=== PATIENT | female | born 1975 | race Caucasian/White ===

== ENCOUNTER 2020-04-17 15:42 | Emergency (ER) | payer OTHER ==
[~2020-04-17] VITALS: Wt 117.9 kg
[~2020-04-17 15:42] MED LIST: ALBUTEROL0.09 MG/A2 IH; AMOXIL500 MG PO; ANAPROX DS550 MG PO; CLARITIN10 MG PO; CORTISPORIN 1%-10 M1 OT; DIFLUCAN150 MG PO; EES400 MG PO; IMITREX100 MG PO; MOTRIN800 MG PO; PERCOCET 325 MG1 TA7 PO; PREDNISONE10 MG PO; PYRIDIUM200 MG PO; VICODIN 500 MG-1 TAB PO; ZITHROMAX Z PA250 MG PO; Zofran4 MG PO
[2020-04-17 15:53] VITALS: BP 155/80
[2020-04-17] MEDS ORDERED: PERCOCET 5-3251 EACH PO (17:23)
== END 2020-04-17 17:38 | disposition home or self-care (01) ==
LOC: ED 15:42
DX: S93.401A Sprain of unspecified ligament of right ankle, initial encounter (principal); S93.602A Unspecified sprain of left foot, initial encounter; Z88.2 Allergy status to sulfonamides; Z88.8 Allergy status to other drugs, medicaments and biological substances; Z88.1 Allergy status to other antibiotic agents; Z88.6 Allergy status to analgesic agent; Z79.899 Other long term (current) drug therapy; X50.1XXA Overexertion from prolonged static or awkward postures, initial encounter; Y93.89 Activity, other specified; Y92.89 Other specified places as the place of occurrence of the external cause; Y99.8 Other external cause status

== ENCOUNTER 2021-03-09 15:25 | Emergency (ER) | payer OTHER ==
[~2021-03-09] VITALS: Ht 172.7 cm; Wt 113.4 kg
[~2021-03-09 15:25] MED LIST changes: +PERCOCET 5-3251 EACH PO
[2021-03-09 15:37] VITALS: BP 158/110
[2021-03-09 20:47] LABS: BASO # 0.1 10*3/uL (0.0-0.1); BASO % 0.7 % (0.0-1.0); EOS # 0.2 10*3/uL (0.0-0.4); EOS % 1.6 % (1.0-4.0); HEMATOCRIT 45.9 % (37.0-47.0); LYMPH # 2.9 10*3/uL (1.3-4.4); LYMPH % 22.2 % (27.0-41.0); MEAN CELL VOLUME 98.3 fl (81.0-99.0); MEAN CORPUSCULAR HGB 32.1 pg (27.0-31.0); MEAN CORPUSCULAR HGB CONC 32.7 g/dl (33.0-37.0); MEAN PLATELET VOLUME 11.7 fl (9.6-12.3); MONO % 7.7 % (3.0-9.0); NEUT # 8.7 10*3/uL (2.3-7.9); NEUT % 67.5 % (47.0-73.0); PLATELET COUNT AUTOMATED 188 10*3/uL (130-400); RED BLOOD COUNT 4.67 10*6/uL (4.10-5.10); RED CELL DISTRI WIDTH 13.5 % (0-14.5); WHITE BLOOD COUNT 12.9 10*3/uL (4.8-10.8)
[2021-03-09 21:05] LABS: ALBUMIN 3.7 gm/dl (3.1-4.5); ALKALINE PHOSPHATASE 91 U/L (45-117); BUN 13 mg/dl (7-24); CHLORIDE 110 mmol/L (98-107); CREATININE 0.56 mg/dL (0.55-1.02); SGOT/AST 35 IU/L (3-35); SGPT/ALT 66 U/L (12-78); SODIUM 138 mmol/L (136-145)
[2021-03-09 23:15] LABS: BILIRUBIN 1+ (Negative); BLOOD Negative (Negative); CLARITY Turbid (Clear); COLOR Dark Yellow (Yellow); GLUCOSE Negative (Negative); KETONE 2+ (Negative); LEUKO ESTERASE 1+ (Negative); NITRITE Negative (Negative); PH 5.5 (4.5-8.0); SPECIFIC GRAVITY >= 1.030 (1.001-1.030)
[2021-03-09 23:25] LABS: EPITHELIAL CELLS 21-30
[2021-03-09 23:26] LABS: BACTERIA 2+; WBC 21-30 wbc/hpf (0-5)
[2021-03-10] MEDS ORDERED: ORPHENADRINE C100 M1 PO (01:40)
== END 2021-03-10 01:52 | disposition home or self-care (01) ==
LOC: ED 15:25
PROVIDERS: Emergency Medicine
DX: M54.6 Pain in thoracic spine (principal); R10.9 Unspecified abdominal pain; Z88.2 Allergy status to sulfonamides; Z88.8 Allergy status to other drugs, medicaments and biological substances